=== PATIENT | male | born 1970 | race African-American/Black ===

== ENCOUNTER → 2019-05-15 | Outpatient (CLI) | payer OTHER ==
[~2019-05-15] MED LIST: LEVOXYL75 MCG PO; NORCO 5-325 TA1 EACH PO
== END ==
LOC: RAD 16:33
DX: M47.816 Spondylosis without myelopathy or radiculopathy, lumbar region (principal); N28.89 Other specified disorders of kidney and ureter; M47.814 Spondylosis without myelopathy or radiculopathy, thoracic region